=== PATIENT | male | born 1990 ===

== ENCOUNTER 2018-05-17 23:20 | Emergency (ER) | payer SELFPAY ==
--- NOTE | 2018-05-18 00:30 | ED PDOC ---
HPI: Psych/Substance Abuse Time Seen by Provider: 05/17/18 23:37 Chief Complaint (Nursing): Alcohol Ingestion Chief Complaint (Provider): ETOH History Per: EMS Additional Complaint(s): 28 y/o male brought in by EMS for evaluation of alcohol intoxication. Patient awake, admits to drinking tonight. Past Medical History Reviewed: Historical Data, Nursing Documentation, Vital Signs Vital Signs: Last Vital Signs Temp 97.9 F 05/17/18 23:22 Pulse 78 05/17/18 23:22 Resp 18 05/17/18 23:22 BP 138/78 05/17/18 23:22 Pulse Ox 98 05/17/18 23:22 - Medical History PMH: No Chronic Diseases - Surgical History Surgical History: No Surg Hx - Family History Family History: States: Unknown Family Hx - Immunization History Hx Tetanus Toxoid Vaccination: No Hx Influenza Vaccination: No Hx Pneumococcal Vaccination: No - Home Medications Home Medications: Ambulatory Orders Medication Instructions Recorded No Known Home Med 10/01/16 - Allergies Allergies/Adverse Reactions: Allergies Allergy/AdvReac Type Severity Reaction Status Date / Time No Known Allergies Allergy Verified 10/01/16 22:45 Review of Systems ROS Statement: Except As Marked, All Systems Reviewed And Found Negative Physical Exam - Reviewed Nursing Documentation Reviewed: Yes Vital Signs Reviewed: Yes - Physical Exam Appears: Positive for: Well, Non-toxic, No Acute Distress Head Exam: Positive for: ATRAUMATIC, NORMAL INSPECTION, NORMOCEPHALIC Skin: Positive for: Normal Color Eye Exam: Positive for: Normal appearance ENT: Positive for: Normal ENT Inspection Cardiovascular/Chest: Positive for: Regular Rate, Rhythm Respiratory: Positive for: Normal Breath Sounds Gastrointestinal/Abdominal: Positive for: Normal Exam Back: Positive for: Normal Inspection Extremity: Positive for: Normal ROM Neurologic/Psych: Positive for: Alert, Oriented (x2) - ECG O2 Sat by Pulse Oximetry: 98 - Progress ED Course And Treament: -accucheck -alcohol 1:30 Patient sleeping; no distress 3:00 Patient sleeping; no distress 4:30 Patient sleeping; no distress 6:00 Patient awake, alert, oriented x3. Ambulating steady gait. Stable for discharge Disposition - Clinical Impression Clinical Impression: Alcohol intoxication - Patient ED Disposition Is Patient to be Admitted: No Counseled Patient/Family Regarding: Studies Performed, Diagnosis, Need For Followup - Disposition Disposition: Routine/Home Disposition Time: 06:00 Condition: IMPROVED Instructions: Alcohol Use - When Is Drinking a Problem? Print Language: [place]
[2018-05-18 06:52] VITALS: BP 141/79; PULSE 93; RESP 18; TEMP 97.7; O2SAT 98
== END 2018-05-18 06:50 | disposition home or self-care (01) ==
LOC: H.ER 23:20
DX: F10.129 Alcohol abuse with intoxication, unspecified (principal)
CPT/HCPCS: 82948; 99284; G0480